=== PATIENT | male | born 1985 | race Caucasian/White ===

== ENCOUNTER 2024-05-12 15:33 | Emergency (ER) | payer MEDICAID, OTHER ==
[~2024-05-12] VITALS: Ht 180.3 cm; Wt 72.6 kg
[2024-05-12 15:40] VITALS: BP_SYST 132; PULSE 87; RESP 16; TEMP 98.7; O2SAT 97
[2024-05-12 19:30] VITALS: BP_SYST 115; PULSE 78; RESP 16; TEMP 98.7; O2SAT 97
== END 2024-05-12 19:30 | disposition home or self-care (01) ==
LOC: SED 15:33
DX: F10.129 Alcohol abuse with intoxication, unspecified (principal); F31.9 Bipolar disorder, unspecified; Y90.9 Presence of alcohol in blood, level not specified
CPT/HCPCS: 99283